=== PATIENT | female | born 1970 | race Caucasian/White ===

== ENCOUNTER 2017-08-16 07:37 | Emergency (ER) | payer SELFPAY ==
[2017-08-16 07:45] VITALS: BP 126/72; BMI 28.5
[2017-08-16] MEDS ORDERED: NS 1000 ML 1,000 ML IV ONE (08:10)
[2017-08-16] MEDS ORDERED: ZOFRAN INJ 4 MG VIAL IVP ONE (08:11)
[2017-08-16] MEDS ORDERED: NS 1000 ML 1,000 ML ONE (08:14)
[2017-08-16] MEDS ORDERED: ZOFRAN INJ 4 MG VIAL ONE (08:15)
--- NOTE | 2017-08-16 08:19 | DR.GENAD ---
HPI - PCP Primary Care Physician: none - Complaint/Symptoms Chief Complaint Doctors Comments: N/V + Diarrhear x 2 days. No recent travels out of town and denies consumption of poorly cooked food items. No abdominal cramps. A grand daughter has similar synptoms. Chief Complaint:: Started throwing up and having diarrhea on Sunday morning. Diarrhea stopped yesterday but still throwing up. Dizziness started today Self Treatment fo Chief Complaint: took phenergan at home with no relief - Nurses notes reviewed Nurses Notes Review: Yes - Source History Provided: Patient - Mode of Arrival Mode of Arrival: Ambulatory - Timing Onset of Chief Complaint: 08/14/17 PMH - PMH Past Medical History: Yes Past Medical History: Angina Past Surgical History: Yes Surgical History: Appendectomy, Hysterectomy - Family History History of Family Medical Conditions: Yes Family Medical History: Diabetes Mellitus, Cancer, Coronary Artery Disease, Hypertension - Social History Does patient currently use any type of tobacco product: No Have you used tobacco products in the last 12 months: No Type of Tobacco Use: None Does any household member use tobacco: No Alcohol Use: None Do you use any recreational Drugs:: No Lives With: Alone Lives Where: Home - infectious screening In the last 2 months have you had wt loss of >10#?: NO Have you had fever, night sweats or hemotysis?: No Have you traveled outside the country in the last 6 months?: No Isolation: Standard ROS - Review of Systems Constitutional: Fever Eyes: No Symptoms Reported ENTM: No Symptoms Reported Respiratoy: No Symptoms Reported Cardiovascular: No Symptoms Reported Gastrointestinal/Abdominal: Diarrhea, Nausea, Vomiting Genitourinary: No Symptoms Reported Neurological: No Symptoms Reported Musculoskeletal: No Symptoms Reported Integumentary: No Symptoms Reported Hematologic/Lymphatic: No Symptoms Reported Endocrine: No Symptoms Reported Psychiatric: No Symptoms Reported All Other Systems: Reviewed and Negative PE - Vital Signs Vitals: Temperature 98.1 F Pulse Rate 84 Respiratory Rate 22 Blood Pressure [Right Arm] 107/72 Blood Pressure 126/72 O2 Sat by Pulse Oximetry 99 - General Limitations: No Limitations General Appearance: Alert, In No Apparent Distress - Head Head Exam: Normal Inspection - Eyes Eye exam: Normal Appearance - ENT ENT Exam: Normal Exam External Ear Exam: Normal External Inspection TM/Canal Exam: Bilateral Normal Mouth Exam: Normal Inspection Throat Exam: Normal Inspection - Neck Neck Exam: Normal Inspection - Chest Chest Inspection: Normal Inspection - Respiratory Respiratory Exam: Normal Lung Sounds Bilat - Cardiovascular Cardiovascular Exam: Regular Rate, Normal Rhythm, +S1, +S2 - Abdominal Exam Abdominal Exam: Normal Inspection, Normal Bowel Sounds, Soft - Extremities Extremities Exam: Normal Inspection, Full ROM, Normal Capillary Refill - Back Back Exam: Normal Inspection - Neurologic Neurological Exam: Alert, Oriented X3, CN II-XII Intact - Psychiatric Psychiatric Exam: Normal Affect, Normal Mood - Skin Skin Exam: Warm, Dry, Intact, Normal Color ROR - Labs Reviewed Result Diagrams: 08/16/17 08:20 08/16/17 08:20 Laboratory: WBC 6.5 X10^3/uL (3.6-10.0) 08/16/17 08:20 RBC 5.09 X10^6/uL (3.5-5.4) 08/16/17 08:20 Hgb 13.9 g/dL (12.0-16.0) 08/16/17 08:20 Hct 41.5 % (36.0-47.0) 08/16/17 08:20 MCV 81.4 fL (80.0-100.0) 08/16/17 08:20 MCH 27.3 pg (27.0-34.0) 08/16/17 08:20 MCHC 33.6 g/dL (33.0-35.0) 08/16/17 08:20 RDW 13.3 % (11.6-16.5) 08/16/17 08:20 Plt Count 262 X10^3/uL (150.0-450.0) 08/16/17 08:20 MPV 8.4 fL (7.4-11.0) 08/16/17 08:20 Neut % 60.9 % (42.0-75.0) 08/16/17 08:20 Lymph % 25.2 % (21.0-51.0) 08/16/17 08:20 Butts % 8.8 % (0.0-13.0) 08/16/17 08:20 Eos % 4.1 % (0.9-2.9) H 08/16/17 08:20 Baso % 1.0 % (0.2-1.0) 08/16/17 08:20 Neut # 3.9 x10^3/uL (2.2-4.8) 08/16/17 08:20 Lymph # 1.6 X10^3/uL (1.3-2.9) 08/16/17 08:20 Butts # 0.6 x10^3/uL (0.3-0.8) 08/16/17 08:20 Eos # 0.3 x10^3/uL (0.0-0.2) H 08/16/17 08:20 Baso # 0.1 X10^3/uL (0.0-0.1) 08/16/17 08:20 Absolute Nucleated RBC 0.1 /100WBC 08/16/17 08:20 Sodium 139 mmol/L (136-145) 08/16/17 08:20 Corrected Sodium 140 mmol/L (136-145) 08/16/17 08:20 Potassium 3.7 mmol/L (3.5-5.1) 08/16/17 08:20 Chloride 105 mmol/L (98-107) 08/16/17 08:20 Carbon Dioxide 25.5 mmol/L (21-32) 08/16/17 08:20 BUN 9 mg/dL (7-18) 08/16/17 08:20 Creatinine 0.85 mg/dL (0.55-1.02) 08/16/17 08:20 Est GFR (MDRD) Af Amer > 60 (>60) 08/16/17 08:20 Est GFR (MDRD) Non-Af > 60 (>60) 08/16/17 08:20 Glucose 125 mg/dL (65-99) H 08/16/17 08:20 Calcium 8.8 mg/dL (8.5-10.1) 08/16/17 08:20 Corrected Calcium TNP 08/16/17 08:20 Total Bilirubin 0.10 mg/dL (0.2-1.0) L 08/16/17 08:20 AST 76 Units/L (15-37) H 08/16/17 08:20 ALT 128 Units/L (12-78) H 08/16/17 08:20 Alkaline Phosphatase 127 Units/L (46-116) H 08/16/17 08:20 Total Protein 8.0 g/dL (6.4-8.2) 08/16/17 08:20 Albumin 3.6 g/dL (3.4-5.0) 08/16/17 08:20 Globulin 4.4 g/dL (2.5-4.5) 08/16/17 08:20 Albumin/Globulin Ratio 0.8 Ratio (1.1-2.1) L 08/16/17 08:20 Amylase 20 Units/L (25-115) L 08/16/17 08:20 Lipase 137 Units/L (73-393) 08/16/17 08:20 - XRAY XRAY Interpreted by: Radiologist (AAS: Unremarkable) - Diagnosis Discharge Problem: Gastroenteritis, LFTs abnormal - Discharge Plan Disposition: 01 HOME, SELF-CARE Condition: Stable - Follow ups/Referrals Follow ups/Referrals: NFD,None [Primary Care Provider] - 3 days - Instructions
[2017-08-16 08:28] LABS: BASOPHILS # (AUTO) 0.1 X10^3/uL (0.0-0.1); EOSINOPHILS # (AUTO) 0.3 x10^3/uL (0.0-0.2); EOSINOPHILS % (AUTO) 4.1 % (0.9-2.9); HEMATOCRIT 41.5 % (36.0-47.0); HEMOGLOBIN 13.9 g/dL (12.0-16.0); LYMPHOCYTES # (AUTO) 1.6 X10^3/uL (1.3-2.9); LYMPHOCYTES % (AUTO) 25.2 % (21.0-51.0); MEAN CORPUSCULAR HEMOGLOBIN 27.3 pg (27.0-34.0); MEAN CORPUSCULAR HGB CONC 33.6 g/dL (33.0-35.0); MEAN CORPUSCULAR VOLUME 81.4 fL (80.0-100.0); MEAN PLATELET VOLUME 8.4 fL (7.4-11.0); MONOCYTES # (AUTO) 0.6 x10^3/uL (0.3-0.8); MONOCYTES % (AUTO) 8.8 % (0.0-13.0); NEUTROPHILS # (AUTO) 3.9 x10^3/uL (2.2-4.8); NEUTROPHILS % (AUTO) 60.9 % (42.0-75.0); PLATELET COUNT 262 X10^3/uL (150.0-450.0); RED BLOOD COUNT 5.09 X10^6/uL (3.5-5.4); RED CELL DISTRIBUTION WIDTH 13.3 % (11.6-16.5); WHITE BLOOD COUNT 6.5 X10^3/uL (3.6-10.0)
--- NOTE | 2017-08-16 08:34 | RAD ---
HISTORY: Vomiting, diarrhea Study: Flat upright abdomen, PA chest Comparison: 11/22/2013 Findings: The psoas shadows are seen. The abdominal gas shadows are unremarkable. There is no evidence for burke l obstruction, pneumoperitoneum, abnormal calcifications or abnormal masses. The chest is clear. IMPRESSION: Unremarkable acute abdominal series Reported By:
[2017-08-16 08:40] LABS: ALANINE AMINOTRANSFERASE 128 Units/L (12-78); ALBUMIN 3.6 g/dL (3.4-5.0); ALKALINE PHOSPHATASE 127 Units/L (46-116); AMYLASE 20 Units/L (25-115); ASPARTATE AMINO TRANSFERASE 76 Units/L (15-37); BLOOD UREA NITROGEN 9 mg/dL (7-18); CALCIUM 8.8 mg/dL (8.5-10.1); CARBON DIOXIDE 25.5 mmol/L (21-32); CHLORIDE 105 mmol/L (98-107); COR NA(FOR HYPERGLY) 140 mmol/L (136-145); CREATININE 0.85 mg/dL (0.55-1.02); LIPASE 137 Units/L (73-393); SODIUM 139 mmol/L (136-145); eGFR BLACK RACES > 60 (>60); eGFR NON BLACK RACES > 60 (>60)
== END 2017-08-16 09:39 | disposition home or self-care (01) ==
LOC: ER 07:47
DX: K52.89 Other specified noninfective gastroenteritis and colitis (principal); R94.5 Abnormal results of liver function studies
CPT/HCPCS: 36415; 74022; 80053; 82150; 83690; 85025; 96365; 96374; 99282; 99283; A4222; J2405